=== PATIENT | female | born 1985 | race Caucasian/White ===

== ENCOUNTER 2016-12-05 05:03 | Inpatient (IN) | payer OTHER ==
[2016-12-05] VITALS (13 sets, daily range): BP systolic 103–125; BP diastolic 61–74
[2016-12-06] VITALS: BP 107/62
--- NOTE | 2016-12-06 00:42 | NUR ---
Pt. sitting up in bed, holding her in her arms. C/O some abdominal cramping and back discomfort. Taking Emma pack. Not requesting anything else for discomfort at this time. Will continue to offer assistance as needed.
[2016-12-06 08:23] VITALS: BP 106/65
--- NOTE | 2016-12-06 09:04 | Provider's Discharge Care Plan ---
Problem, Goal, Plan Problem List 1. normal course Goals: Improve function Instructions: Follow up as directed
--- NOTE | 2016-12-06 09:04 | Provider's Discharge Care Plan ---
Problem, Goal, Plan Problem List 1. normal course Goals: Improve disease control, Improve function Instructions: Follow up as directed
--- NOTE | 2016-12-06 09:04 | Provider's Discharge Care Plan ---
Problem, Goal, Plan Problem List 1. normal course Goals: Improve disease control, Improve function Instructions: Follow up as directed
--- NOTE | 2016-12-06 09:04 | Provider's Discharge Care Plan ---
Problem, Goal, Plan Problem List 1. normal course Goals: Improve function Instructions: Follow up as directed
--- NOTE | 2016-12-06 14:40 | NUR ---
Discharged home, ambulated to private vehicle with RN as escort. Baby and all belongings with Crystal.
== END 2016-12-06 14:40 | disposition home or self-care (01) | DRG 775 ==
LOC: OBC SRH 05:03 → OB SRH 05:08
PROVIDERS: ADMIT Obstetrics & Gynecology
DX: O70.0 First degree perineal laceration during delivery (principal); Z37.0 Single live birth; O69.81X0 Labor and delivery complicated by cord around neck, without compression, not applicable or unspecified; Z3A.38 38 weeks gestation of pregnancy
CPT/HCPCS: 40010; 90074; 95059